=== PATIENT | female | born 1955 | race African-American/Black ===

== ENCOUNTER 2017-01-26 16:59 | Emergency (ER) | payer BC ==
[2017-01-26 17:20] LABS: BASOPHILS 1.1 %; BASOPHILS ABSOLUTE 0.08 10/3/uL (0.0-0.16); EOSINOPHILS 5.3 %; EOSINOPHILS ABSOLUTE 0.38 10/3/uL (0.0-0.53); ER CBC TAT 0 Hrs 05 Mins; HEMATOCRIT 45.9 % (36.0-48.0); HEMOGLOBIN 15.3 g/dL (12.0-16.0); IMMATURE GRANULOCYTES 0.6 %; IMMATURE GRANULOCYTES ABSOLUTE 0.04 10/3/uL (0.0-0.11); MANUAL DIFF NO %; MEAN CORPUS HGB CONC 33.3 g/dL (32.0-36.0); MEAN CORPUSCULAR HEMOGLOB 30.6 pg (26.0-34.0); MEAN CORPUSCULAR VOLUME 91.8 fL (80-100); MEAN PLATELET VOLUME 10.5 fL (9.2-13.0); MONOCYTES 6.8 %; MONOCYTES ABSOLUTE 0.49 10/3/uL (0.21-1.20); NEUTROPHILS 68.2 %; NEUTROPHILS ABSOLUTE 4.94 10/3/uL (2.02-8.40); PLATELET COUNT 222 10/3/uL (150-400); RBC DISTRIBUTION WIDTH 12.4 % (12.0-16.0); WHITE BLOOD CELLS 7.2 10/3/uL (4.5-10.5)
[2017-01-26 17:30] LABS: INTERNATIONAL NORMAL RATI 1.1 UNITS (-); PARTIAL THROMBO TIME 23.2 SEC (22.5-37.2); PROTIME (NOT ORD) 13.8 SEC (12.0-14.5)
[2017-01-26 17:36] LABS: BUN (BLOOD UREA NITROGEN) 15 MG/DL (6-23); CALCIUM, SERUM 9.2 MG/DL (8.5-10.4); CHEST PAIN PROFILE TAT 0 Hrs 21 Mins; CHLORIDE, SERUM 100 MMOL/L (96-112); CO2 (CARBON DIOXIDE) 31 MMOL/L (24-34); CREATININE 0.74 MG/DL (0.55-1.02); GFR AFRICAN AMERICAN 100 ML/MIN (>=60); GFR NON AFRICAN AMERICAN 86 ML/MIN (>=60); GLUCOSE, SERUM 108 MG/DL (60-99); POTASSIUM, SERUM 3.7 MMOL/L (3.5-5.3); SODIUM, SERUM 140 MMOL/L (135-148); TROPONIN I <0.02 NG/ML (<0.05)
== END 2017-01-26 19:38 | disposition home or self-care (01) ==
LOC: ER 16:59
PROVIDERS: Emergency Medicine
DX: S02.2XXA Fracture of nasal bones, initial encounter for closed fracture (principal); S46.912A Strain of unspecified muscle, fascia and tendon at shoulder and upper arm level, left arm, initial encounter; R55 Syncope and collapse; I10 Essential (primary) hypertension; F17.200 Nicotine dependence, unspecified, uncomplicated; W18.2XXA Fall in (into) shower or empty bathtub, initial encounter
CPT/HCPCS: 70450; 70486; 73030-LT; 80048; 83735; 84484; 85025; 85610; 85730; 93005; 99285